=== PATIENT | male | born 1960 | race Caucasian/White ===

== ENCOUNTER 2018-09-24 06:25 | Emergency (ER) | payer BC ==
[2018-09-24] MEDS: ALBUTEROL 0.083% (NEB) 2.5 MG/3 ML AMP NEB (07:40)
[2018-09-24] MEDS: IPRATROPIUM (NEB) 0.5 MG/2.5 ML AMP NEB (07:40)
[2018-09-24] MEDS: DEXAMETHASONE 10 MG/ML 1 ML INJ IM (07:43)
== END 2018-09-24 08:15 | disposition home or self-care (01) ==
LOC: FTE 06:25
DX: R05 Cough (principal); Z87.891 Personal history of nicotine dependence
CPT/HCPCS: 94664; 96372; 99284-25

== ENCOUNTER 2018-10-08 07:39 | Emergency (ER) | payer BC ==
[2018-10-08] MEDS: ALBUTEROL HFA 8 GM INHALER INH (08:29)
[2018-10-08] MEDS: predniSONE 20 MG TAB PO (09:18)
== END 2018-10-08 09:23 | disposition home or self-care (01) ==
LOC: FTE 07:39
DX: F17.210 Nicotine dependence, cigarettes, uncomplicated (principal)
CPT/HCPCS: 71045; 99283-25